=== PATIENT | male | born 1985 | race African-American/Black ===

== ENCOUNTER 2025-07-27 13:07 | Emergency (ER) | payer MEDICAID ==
[~2025-07-27] VITALS: Ht 180.3 cm; Wt 68.0 kg
[2025-07-27 13:32] VITALS: TEMP 36.9; O2SAT 100
[2025-07-27 16:14] VITALS: RESP 12; O2SAT 95
[2025-07-27 16:15] VITALS: BP 107/84; PULSE 72
[2025-07-27] MEDS: HYDROCODONE/ACETAMINOPHEN 5/325MG TABLET PO ONE (16:15)
[2025-07-27] MEDS ORDERED: TOPUD MT (16:36)
== END 2025-07-27 17:29 | disposition home or self-care (01) ==
LOC: ER 13:07
DX: G89.29 Other chronic pain (principal); M54.50 Low back pain, unspecified; L98.429 Non-pressure chronic ulcer of back with unspecified severity; G82.20 Paraplegia, unspecified; Z99.3 Dependence on wheelchair; W19.XXXA Unspecified fall, initial encounter; Y93.89 Activity, other specified; Y92.89 Other specified places as the place of occurrence of the external cause; Y99.8 Other external cause status
CPT/HCPCS: 72128; 72131; 99284